=== PATIENT | female | born 1945 | race Caucasian/White ===

== ENCOUNTER 2018-01-24 15:34 | Inpatient (IN) ==
--- NOTE | 2018-01-24 20:53 | P.HP ---
History of Present Illness Service: CP Adult med Primary Care Physician: UNKNOWN Chief Complaint: transfer for cath re: severe LAD dz History of Present Illness: 72 y.o. WF liver transplant recipient presents as transfer from [facility] for definitive rotational atherectomy heart cath re: severe LAD dz. She presented to previous hospital yesterday via [facility] secondary to sudden onset chest pressure/pain around noon. Was admitted for likely NSTEMI. Cath performed via right radial artery today revealed 2 significant lesions in LAD and 1 diagonal lesion. Angioplasty was attempted and she was subsequently transferred to [facility] for repeat cath with atherectomy tomorrow AM with Dr Alvarenga. She is chest pain free and has no SOB. Dr Alvarenga is aware and has already phoned in orders in prep for her procedure tomorrow AM. PMH Adjustment disorder with depressed mood Anxiety CKD stage III GERD Hyperlipidemia History of liver transplant [place] Osteoporosis History of major depression PSH Right breast biopsy 2005 Liver biopsy 2007 Cholecystectomy D&C Liver transplant July 2010 Right breast lumpectomy Soc Hx for 40 yrs Retired first aid attendant Currently homemaker Never a smoker, never a heavy drinker of EtOH and hasn't drank any EtOH in yrs. FH Father had an acute FL at age 59 and also had history of hypertension and diabetes Father in his 80s of CHF exacerbation apparently Home meds Alprazolam 1mg bid Amlodipine 5mg/d Calcium +vit D bid Clonidine 0.1 mg bid prn sbp >160 or dbp >90 Lisinopril 5mg/d Tacrolimus 1mg bid - Diagnosis (1) Coronary artery disease (2) Anxiety (3) Liver transplant recipient (4) Hypertension Inpatient Certification: I certify that the inpatient services were ordered in accordance with Medicare regulations governing the order. This includes certification that hospital inpatient services are reasonable and necessary and in the case of services not specified as inpatient-only under 42 CFR 419.22(n), that they are appropriately provided as inpatient services in accordance to with the 2-midnight benchmark under 43 CFR 412.3(e) Estimated Total Length of Stay (Days): 2 Plans for Post Hospital Care: Home Review of Systems Constitutional: Reports fatigue Eyes: Denies blind spots, Denies blurry vision, Denies bulging eyes, Denies change in vision, Denies double vision, Denies discharge, Denies dry eyes, Denies floaters, Denies irritation, Denies itchy eyes, Denies loss of vision, Denies pain, Denies requires corrective lenses, Denies sensitivity to light, Denies other Ears, Nose, Mouth, and Throat: Denies abnormal hearing, Denies bleeding gums, Denies bad breath, Denies change in voice, Denies dental pain, Denies difficulty swallowing, Denies dizziness, Denies dry mouth, Denies ear discharge , Denies ear pain, Denies facial pain, Denies headache(s), Denies hearing loss, Denies hoarseness, Denies lip swelling, Denies nosebleed, Denies mouth lesions, Denies mouth pain, Denies nasal congestion, Denies nasal discharge, Denies nasal obstruction, Denies nasal trauma, Denies neck lump, Denies neck pain, Denies nose pain, Denies pain with swallowing, Denies poor balance, Denies post nasal drip, Denies ringing in the ears, Denies sinus pain, Denies sinus pressure , Denies sore throat, Denies throat swelling, Denies tongue swelling, Denies other Cardiovascular: Reports chest pain, Reports chest pain at rest, Reports chest pain with activity, Denies excessive sweating, Denies fainting, Denies fast heart rate, Denies foot swelling, Denies generalized swelling, Denies irregular heart rhythm, Denies leg pain with activity, Denies leg sores, Denies leg swelling, Denies lightheadedness, Denies radiating jaw, neck or arm pain, Denies rapid, pounding, or irregular heartbeat, Denies shortness of breath, Denies shortness of breath with activity, Denies shortness of breath when lying down, Denies shortness of breath causing sudden awakening, Denies slow heart rate, Denies other Respiratory: Denies change in phlegm color, Denies chest congestion, Denies cough, Denies coughing up blood, Denies excessive phlegm production, Denies pain on inspiration, Denies pain with cough, Denies shortness of breath, Denies shortness of breath with activity, Denies snoring, Denies stridor, Denies wheezing, Denies other Gastrointestinal: Reports bloating Neurologic: Denies abnormal hearing, Denies abnormal movements, Denies abnormal speech, Denies abnormal walking, Denies behavioral changes, Denies burning sensations, Denies confusion, Denies dizziness, Denies fainting, Denies frequent falls, Denies headache(s), Denies lack of coordination, Denies localized weakness, Denies loss of vision, Denies memory loss, Denies numbness, Denies other visual disturbances, Denies radiating pain, Denies restless legs, Denies convulsions, Denies seizure-like activity, Denies sensory deficit, Denies tingling, Denies tingling/numbness/burning sensations, Denies tremor(s), Denies unsteadiness, Denies weakness, Denies other Psychiatric: Reports anxiety PMFSH - Social History I have reviewed the patient's Social History: Yes Exam Narrative: GENERAL: a/o, NAD, pleasant, appears younger than stated age SKIN: Warm and dry. HEAD: Atraumatic. Normocephalic. EYES: Pupils equal and round. No scleral icterus. No injection or drainage. ENT: No nasal bleeding or discharge. Mucous membranes pink and moist. NECK: Trachea midline. No JVD. CARDIOVASCULAR: Regular rate and rhythm. no significant murmur RESPIRATORY: No accessory muscle use. Clear to auscultation. Breath sounds equal bilaterally. GASTROINTESTINAL: Abdomen soft, non-tender, mildly distended. MUSCULOSKELETAL: Extremities without clubbing, cyanosis, or edema. No obvious deformities. NEUROLOGICAL: Awake and alert. No obvious cranial nerve deficits. Motor grossly within normal limits. Five out of 5 muscle strength in the arms and legs. Normal speech. PSYCHIATRIC: Appropriate mood and affect; insight and judgment normal. Caprini VTE Risk Assessment Caprini VTE Risk Assessment: Moderate/High Risk (score >= 2) Caprini Risk Assessment Model: Point Value = 1 Point Value = 2 Point Value = 3 Point Value = 5 Age 41-60 Minor surgery BMI > 25 kg/m2 Swollen legs Varicose veins or History of unexplained or recurrent spontaneous Oral contraceptives or hormone replacement Sepsis (< 1 month) Serious lung disease, including pneumonia (< 1 month) Abnormal pulmonary function Acute myocardial infarction Congestive heart failure (< 1 month) History of inflammatory bowel disease Medical patient at bed rest Age 61-74 Arthroscopic surgery Major open surgery (> 45 min) Laparoscopic surgery (> 45 min) Malignancy Confined to bed (> 72 hours) Immobilizing plaster cast Central venous access Age >= 75 History of VTE Family history of VTE Factor V Leiden Prothrombin [id number] Lupus anticoagulant Anticardiolipin antibodies Elevated serum homocysteine Heparin-induced thrombocytopenia Other congenital or acquired thrombophilia Stroke (< 1 month) Elective arthroplasty Hip, pelvis, or leg fracture Acute spinal cord injury (< 1 month) Prophylaxis Regimen: Total Risk Factor Score Risk Level Prophylaxis Regimen 0-1 Low Early ambulation 2 Moderate Order ONE of the following: *Sequential Compression Device (SCD) *Heparin 5000 units SQ BID 3-4 Higher Order ONE of the following medications: *Heparin 5000 units SQ TID *Enoxaparin/Lovenox 40 mg SQ daily (WT < 150 kg, CrCl > 30 mL/min) *Enoxaparin/Lovenox 30 mg SQ daily (WT < 150 kg, CrCl > 10-29 mL/min) *Enoxaparin/Lovenox 30 mg SQ BID (WT < 150 kg, CrCl > 30 mL/min) AND/OR *Sequential Compression Device (SCD) 5 or more Highest Order ONE of the following medications: *Heparin 5000 units SQ TID (Preferred with Epidurals) *Enoxaparin/Lovenox 40 mg SQ daily (WT < 150 kg, CrCl > 30 mL/min) *Enoxaparin/Lovenox 30 mg SQ daily (WT < 150 kg, CrCl > 10-29 mL/min) *Enoxaparin/Lovenox 30 mg SQ BID (WT < 150 kg, CrCl > 30 mL/min) AND *Sequential Compression Device (SCD) Assessment and Plan - Assessment (1) Coronary artery disease Code(s): I25.10 - Atherosclerotic heart disease of [place] coronary artery without angina pectoris Status: Acute Plan: significant LAD lesions. planned cath in AM per Dr Alvarenga. pretreatment re: IV contrast allergy ongoing. Orders per cardiology (2) Anxiety Code(s): F41.9 - Anxiety disorder, unspecified Status: Chronic Plan: continue home meds (3) Liver transplant recipient Code(s): Z94.4 - Liver transplant status Status: Acute Plan: continue home meds (4) Hypertension Code(s): I10 - Essential (primary) hypertension Status: Acute Plan: home meds as tolerated - Plan heart cath in AM, mgmt per cardiology Code Status: full Discussed Condition With: Pt, her nurse and Dr Heard (4) Hypertension Qualifiers: Hypertension type: essential hypertension Qualified Code(s): I10 - Essential (primary) hypertension
[2018-01-24] MEDS ORDERED: ALPRAZolam 0.5 MG Tablet PO PRN (21:44)
[2018-01-24] MEDS ORDERED: Famotidine PF Inj 20 MG/2 ML Vial IV.PUSH ONE (21:45)
[2018-01-24] MEDS: Hydrocortisone Sod Succinate 100 MG Vial IV.PUSH SCH (22:32)
[2018-01-24] MEDS: amLODIPine 10 MG Tablet PO SCH (22:35)
[2018-01-24] MEDS: Metoprolol Tartrate 25 MG Tablet PO SCH (22:35)
[2018-01-25] MEDS ORDERED: Hydrocortisone Sod Succinate 100 MG Vial IV.PUSH SCH (05:00)
[2018-01-25] MEDS ORDERED: Famotidine PF Inj 20 MG/2 ML Vial IV.PUSH SCH (05:00)
[2018-01-25 06:22] LABS: Baso % (Auto) 0.1 % (0.0-2.0); Hematocrit 34.6 % (35.0-46.0); Hemoglobin 11.7 gm/dL (11.6-15.3); Lymph # (Auto) 0.4 th/mm3 (1.0-4.8); Lymph % (Auto) 4.5 % (9.0-44.0); Mean Corpuscular HGB Conc 33.9 % (32.0-36.0); Mean Corpuscular Volume 91.5 fL (80.0-100.0); Mean Platelet Volume 9.4 fL (7.0-11.0); Mono # (Auto) 0.4 th/mm3 (0.0-0.9); Mono % (Auto) 5.5 % (0.0-8.0); Neut # (Auto) 7.3 th/mm3 (1.8-7.7); Neut % (Auto) 89.9 % (16.0-70.0); Platelet Count 236 th/mm3 (150-450); Red Blood Count 3.78 mil/mm3 (4.00-5.30); Red Cell Distribution Width 13.7 % (11.6-17.2); White Blood Count 8.1 th/mm3 (4.0-11.0)
[2018-01-25 06:31] LABS: INR 1.1 Ratio; Prothrombin Time 10.7 sec (9.8-11.6)
[2018-01-25 06:45] LABS: Alanine Aminotransferase 37 U/L (10-53); Albumin 3.8 g/dL (3.4-5.0); Anion Gap 9 meq/L (5-15); Aspartate Aminotransferase 44 U/L (15-37); Blood Urea Nitrogen 17 mg/dL (7-18); Calcium 9.2 mg/dL (8.5-10.1); Carbon Dioxide 28.1 meq/L (21.0-32.0); Chloride 100 meq/L (98-107); Glomerular Filtration Rate 43 mL/min (>89); Glucose,Random 173 mg/dL (74-106); Potassium 3.3 meq/L (3.5-5.1); Sodium 137 meq/L (136-145)
[2018-01-25 06:48] LABS: Alkaline Phosphatase 83 U/L (45-117); Total Protein 6.7 g/dL (6.4-8.2)
--- NOTE | 2018-01-25 07:59 | P.CONCA ---
History of Present Illness Primary Care Provider: UNKNOWN Chief Complaint: transfer for cath re: severe LAD dz History of Present Illness: 72-year-old female with a past medical history of liver transplant who presented to [facility] with severe chest pain on Tuesday. No prior chest pain before that, but has noticed progressive fatigue. She was found to have non-STEMI. She underwent left heart catheterization 01/24/[address] Reyes, which showed severe mid (95%) and proximal (80%) calcific LAD stenoses that were unable to be successfully angioplastied with arthrectomy balloon. Dr. Alvarenga was contacted for rotational arthrectomy for complete revascularization of LAD lesions, and patient was transferred to [facility]. Patient denies any chest pain or shortness of breath at this time. She denies any prior history of heart disease. Review of Systems All other systems reviewed negative except as [facility] - History History Provided By: Patient, Medical Record - Tobacco History Second Hand Smoke Exposure: No Smoking Status: Never smoker - Alcohol History How Often Do You Have a Drink Containing Alcohol: Never - Substance Use History Substance History: No History of Abuse - Travel History Recent Travel in the [place] Within the Last 8 Weeks: No Recent Travel Out of the Country Within the Last 8 Weeks: No Medications and Allergies Allergies Allergy/AdvReac Type Severity Reaction Status Date / Time iodine Allergy Anaphylaxis Verified 01/24/18 21:45 Active Medications: Active Medications Alprazolam (Xanax) 0.5 mg PO TID PRN PRN Reason: ANXIETY Last Admin: 01/24/18 22:32 Dose: 0.5 mg Amlodipine Besylate (Norvasc) 10 mg PO BID [facility] Last Admin: 01/24/18 22:35 Dose: Not Given Aspirin (Aspirin Chew) 81 mg PO DAILY [facility] Atorvastatin Calcium (Lipitor) 40 mg PO HS [facility] Last Admin: 01/24/18 22:34 Dose: Not Given Famotidine (Pepcid Pf Inj) 20 mg IV.PUSH [employer] [facility] Stop: 01/25/18 17:00 Hydrocortisone Sodium Succinate (Solucortef Inj) 100 mg IV.PUSH NOW [facility] Last Admin: 01/24/18 22:32 Dose: 100 mg Hydrocortisone Sodium Succinate (Solucortef Inj) 100 mg IV.PUSH [employer] [facility] Stop: 01/25/18 18:00 Metoprolol Tartrate (Lopressor) 25 mg PO BID [facility] Last Admin: 01/24/18 22:35 Dose: Not Given Tacrolimus (Prograf) 1 mg PO Q12HR [facility] Last Admin: 01/24/18 22:29 Dose: 1 mg Ticagrelor (Brilinta) 90 mg PO BID [facility] Last Admin: 01/24/18 22:27 Dose: 90 mg Vitamin D (Vitamin D3) 400 unit PO DAILY [facility] Exam Vital signs: Vital Signs 01/24/18 23:00 01/25/18 00:00 01/25/18 04:00 Temperature 98.8 F 98.4 F 98.6 F Pulse Rate 81 91 H 90 Respiratory Rate 16 18 20 Blood Pressure 94/63 L 105/68 118/72 Pulse Oximetry 96 95 98 Intake & Output 01/24/18 01/25/18 01/25/18 18:59 06:59 18:59 Intake Total 240 / 240 Balance 240 / 240 Weight 114 lb 3.191 oz Intake: Oral 240 / 240 Other: Date of Last Bowel Movement 01/22/18 Narrative: GENERAL: Well-developed well-nourished. In no acute distress. NECK: No carotid bruits. No JVD. CARDIOVASCULAR: Regular rate and rhythm. No murmur appreciated. RESPIRATORY: No accessory muscle use. Clear to auscultation. Breath sounds equal bilaterally. MUSCULOSKELETAL: No clubbing or cyanosis. No edema. NEUROLOGICAL: Awake and alert. Normal speech. Results 01/25/18 05:06 01/25/18 05:06 Cardiac Enzymes 01/25/18 Range/Units 05:06 AST 44 H (15-37) U/L Coagulation 01/25/18 Range/Units 05:06 PT 10.7 (9.8-11.6) sec CBC 01/25/18 Range/Units 05:06 WBC 8.1 (4.0-11.0) th/mm3 RBC 3.78 L (4.00-5.30) mil/mm3 Hgb 11.7 (11.6-15.3) gm/dL Hct 34.6 L (35.0-46.0) % Plt Count 236 (150-450) th/mm3 Neut # (Auto) 7.3 (1.8-7.7) th/mm3 Lymph # (Auto) 0.4 L (1.0-4.8) th/mm3 [place] # (Auto) 0.4 (0.0-0.9) th/mm3 Eos # (Auto) 0.0 (0.0-0.4) th/mm3 Baso # (Auto) 0.0 (0.0-0.2) th/mm3 Comprehensive Metabolic Panel 01/25/18 Range/Units 05:06 Sodium 137 (136-145) meq/L Potassium 3.3 L (3.5-5.1) meq/L Chloride 100 (98-107) meq/L Carbon Dioxide 28.1 (21.0-32.0) meq/L BUN 17 (7-18) mg/dL Creatinine 1.22 H (0.50-1.00) mg/dL Calcium 9.2 (8.5-10.1) mg/dL AST 44 H (15-37) U/L ALT 37 (10-53) U/L Alkaline Phosphatase 83 (45-117) U/L Total Protein 6.7 (6.4-8.2) g/dL Albumin 3.8 (3.4-5.0) g/dL Intake and Output 01/24/18 01/25/18 01/25/18 22:59 06:59 14:59 Intake Total 240 / 240 Balance 240 / 240 Intake: Oral 240 / 240 Other: Date of Last Bowel Movement 01/22/18 Weight 114 lb 3.191 oz Assessment and Plan - Plan 72-year-old female with a past medical history of liver transplant who presented to [facility] with severe chest pain on Tuesday. She was found to have non-STEMI. She underwent left heart catheterization 01/24/[address] Reyes, which showed severe mid (95%) and proximal (80%) calcific LAD stenoses that were unable to be successfully angioplastied with arthrectomy balloon. Dr. Alvarenga was contacted for rotational arthrectomy for complete revascularization of LAD lesions, and patient was transferred to [facility]. CAD: NPO for [facility] today. Continue aspirin, Brilinta, statin. Discussed Condition With: Patient, Dr. Alvarenga - Attending Attestation agree with above PCI FREDDIE proximal and mid LAD atherectomy asa brilinta bb statin DC home tomorrow 2d echo
--- NOTE | 2018-01-25 08:35 | P.PNIM ---
Subjective Interval history: pt denies cp or sob Physical Exam Vital signs: Last Vital Signs Temp 98.3 F 01/25/18 08:22 Pulse 99 H 01/25/18 08:22 Resp 16 01/25/18 08:22 BP 133/80 01/25/18 08:22 Pulse Ox 100 01/25/18 08:22 Narrative: heart reg lung cta abd s/nt ext no edema Results Labs CBC & Chem 7: 01/25/18 05:06 01/25/18 05:06 Assessment and Plan Assessment (1) Coronary artery disease: Code(s): I25.10 - Atherosclerotic heart disease of [place] coronary artery without angina pectoris Status: Acute (2) Anxiety: Code(s): F41.9 - Anxiety disorder, unspecified Status: Chronic (3) Liver transplant recipient: Code(s): Z94.4 - Liver transplant status Status: Chronic (4) Hypertension: Code(s): I10 - Essential (primary) hypertension Status: Acute Plan discussed with Dr Alvarenga. going for intervention today on LAD cont current meds and decide on disposition after LHC asa/ticagrelor/statin/bb cont tacrolimas replace kcl Progress Note: Quality VTE Deep Vein Thrombosis/Pulmonary Embolism Present on Admission: No _ (1) Coronary artery disease Qualifiers: Associated angina: Coronary Disease-Associated Artery/Lesion type: [place] vs. transplanted heart: (2) Hypertension Qualifiers: Hypertension type: essential hypertension Qualified Code(s): I10 - Essential (primary) hypertension
[2018-01-25] MEDS: Hydrocortisone Sod Succinate 100 MG Vial IV.PUSH SCH (08:56)
[2018-01-25] MEDS ORDERED: Heparin/NS PF Inj 1,500 ML ONE (09:47)
[2018-01-25] MEDS ORDERED: fentaNYL Citrate Inj 100 MCG/2 ML Ampul ONE ×3 (09:54→14:43)
[2018-01-25] MEDS ORDERED: Heparin 10,000 UNITS/10 ML Vial (for IV use) ONE (09:54)
--- NOTE | 2018-01-25 11:22 | CATHPROC ---
[facility] HIS Report Study Information Study Number Admission Scheduled Start Study Start [id number] Jan 24 2018 7:30PM 01/25/2018 Jan 25 2018 9:32AM [facility] Service Cardiac Pacer/ICD Admit Source Facility Department Other [facility] - Synthetic Department Supervisor Physician and Clinical Staff Initial Edis Maria Anesthesia Assistant Deanna Patel,[place] Anesthesia Assistant Mony Rehman RN Recorder Floresita Reed ,RT(R) Amy JenkinsRT(R) (BS) Procedures Performed Procedure Location (Site) Vessel Name Drug Eluting Inflatio LAD Mid Left Coronary IVUS Fem Art (right) Femoral Art L Heart Cath PTCA LAD Mid Left Coronary Wire insertion Fem Art (right) Femoral Art Equipment Time Shuttle Filler Description Size Mfg Part Number Used/Scraped COPILOT VALVE, BLEEDBACK [id number] 09:41 [employer] Used CONTROL *[id number] TRANSDUCER, TRUWAVE [id number] 09:34 BRADY BELLO * Used W/STOCKCOCK *[id number] CARDIOVASCULAR CATHETER, CORONARY CLASSIC DBEC-125 10:33 Used SYSTEMS INC. 1.25MM *[id number] CARDIOVASCULAR WIRE, VIPER ADVANCE [id number] 10:30 Used [employer]S INC. CORONARY FLP *[id number] *[id number] 09:34 [employer] BLANKET,WARM AIR CCL * Used *[id number] 09:34 [employer] PACK, CCL CUSTOM * Used *[id number] 09:34 [employer] SUPPORT, ARTERIAL ADULT 57740 *[id number] Used BALLOON, 1.25 X 6MM SPRINTER [id number] 10:28 [employer] 6MM Used LEGEND OTW *[id number] 10:43 [employer] BALLOON, 2.5 X 20MM EUPHORA 20MM Used *[id number] BALLOON, 2.5 X 20MM NC [id number] 11:05 [employer] 20MM Used EUPHORA *[id number] 10:54 [employer] STENT, 2.25 18MM ARVIND 2.25 18MM Used *[id number] 10:59 [employer]IC STENT, 2.5 34MM ARVIND 2.5 34MM Used *[id number] [id number] 09:40 [employer] 30 ANGELA INDEFLATOR Used *[id number] SHEATH, FR6 RADIAL PRELUDE 09:34 [email or web address] MEDICAL FR 6 [id number] Used EASE 11CM [id number]- 09:42 [email or web address] MEDICAL SHEATH, FR6.5 PRELUDE 11CM FR 6.5 038ACT Used *[id number] 09:34 [email or web address] MEDICAL WIRE, EXCHANGE 260CM 3MMJ 260CM Used *6916835 [id number] 09:34 NAMIC MANIFOLD, 4 PORT * Used *[id number] 09:34 [employer] OMNIPAQUE, 350 MG, 150ML 150ML [id number] Used WIRE, RUNTHROUGH NS FLOPPY [id number] 10:13 [employer] 300CM Used .014 300CM *[id number] CATHETER, [employer]ARCH [id number] 10:13 [employer] Used IMAGING *[id number] Equipment Model, Serial, Lot Number and Expiration Data Description Model Number Serial Number Lot Number Expiration Date CATHETER, [employer] POARCH [id number] 07-26-2019 IMAGING STENT, 2.25 18MM ARVIND [id number] 02-25-2019 STENT, 2.5 34MM ARVIND [id number] 05-31-2019 WIRE, VIPER ADVANCE CORONARY [id number] 08-26-2019 History: Current Medications Medication Dosage/Unit Route Frequency Last Date/Time Taken NORVASC ASA LIPITOR LOPRESSOR History: Allergies Allergy Reaction iodine Anaphylaxis History: Risk Factors Family History of Hypertension Dyslipidemia Previous IL Previous Heart Failure Premature CAD Yes Yes No No No Prior Valve Prior PCI Prior CABG Surgery No No No Cerebrovascular Peripheral Artery Chronic Lung On Dialysis Diabetes Disease Disease Disease No No No No No Labs Hgb (g/dl) Hct (%) WBC (l/cumm) Platelets (thousands) 11.60-17.00 35.00-51.00 4.00-11.00 150.00-450.00 11.7 34.6 8.1 236 Glucose (mg/dl) BUN (mg/dl) Creatinine (mg/dl) BUN:Creatinine (1:x) 74.00-106.00 7.00-18.00 0.50-1.30 10.00-20.00 173 17 1.2 14.2 Na (meq/l) K (meq/l) 136.00-145.00 3.50-5.10 137 3.3 INR (PTT:PT) 0.90-1.10 1.1 CPK-MB (ng/ML) 0.50-3.60 Not Drawn Medication Medication Total Dose (Bolus/Oral) Medication Total Dosage/Unit 1% XYLOCAINE 15 mL FENTANYL 125 mcg HEPARIN 5000 units VERSED 4 mg Medications (Bolus/Oral) Medication Time Given Dosage/Unit Administered By Reason 01/25/2018 10:06:13 VERSED 1 mg Adamy, Deanna AM 1 mg VERSED given in lab by Deanna Patel RN via Peripheral IV. Ordered by Edis Alavrenga. 01/25/2018 10:07:14 FENTANYL 50 mcg Graemey, Deanna AM 50 mcg FENTANYL given in lab by Deanna Patel RN via Peripheral IV. Ordered by Edis Alvarenga. 01/25/2018 10:09:40 1% XYLOCAINE 15 mL Edis Alvarenga AM 15 mL 1% XYLOCAINE given in lab by Edis Alvarenga via Subcutaneous. Ordered by Edis Alvarenga. 01/25/2018 10:12:37 HEPARIN 5000 units Elida Patelnifer AM 5000 units HEPARIN given in lab by Deanna Patel RN via Peripheral IV. Ordered by Edis Alvarenga. 01/25/2018 10:14:40 VERSED 1 mg Adamy, Deanna AM 1 mg VERSED given in lab by Deanna Patel RN via Peripheral IV. Ordered by Edis Alvarenga. 01/25/2018 10:15:41 FENTANYL 25 mcg Adamy, Deanna AM 25 mcg FENTANYL given in lab by Deanna Patel RN via Peripheral IV. Ordered by Edis Alvarenga. 01/25/2018 10:39:27 VERSED 1 mg Adamy, Deanna AM 1 mg VERSED given in lab by Deanna Patel RN via Peripheral IV. Ordered by Edis Alvarenga. 01/25/2018 10:40:34 FENTANYL 25 mcg Adamy, Deanna AM 25 mcg FENTANYL given in lab by Deanna Patel RN via Peripheral IV. Ordered by Edis Alvarenga. 01/25/2018 10:50:31 VERSED 1 mg Mony Rehman AM 1 mg VERSED given in lab by Mony Rehman RN via Peripheral IV. Ordered by Edis Alvarenga. 01/25/2018 10:52:44 FENTANYL 25 mcg Mony Rehman AM 25 mcg FENTANYL given in lab by Mony Rehman, RN via Peripheral IV. Ordered by Edis Alvarenga. Medication (Drip) Medication Time Given Dosage/Unit Concentration/Unit Diluent (ml) Solution IV Solutions 01/25/2018 9:41:09 AM 50 mL (IV) NaCl .9 Patient arrived on IV Solutions via Peripheral IV. Pump/Drip Flow using NaCl .9. Initial Case Assessment Cardiovascular HR NIBP 89 125/78 Edema Present Skin color Skin None Normal Warm Dry Circulatory - Right Pulses Dorsalis Pedis Femoral 3 2 Scale (0,1,2,3,4,d) Circulatory - Left Pulses Dorsalis Pedis Femoral 3 2 Scale (0,1,2,3,4,d) Neurological State Oriented to time-place- Alert Moves all extremities person Respiration - General Respiration Rate SpO2 (%) (B/min) 16 97 Final Case Assessment Cardiovascular HR NIBP 89 125/78 Edema Present Skin color Skin None Normal Warm Dry Circulatory - Right Pulses Dorsalis Pedis Femoral 3 2 Scale (0,1,2,3,4,d) Circulatory - Left Pulses Dorsalis Pedis Femoral 3 2 Scale (0,1,2,3,4,d) Neurological State Oriented to time-place- Alert Moves all extremities person Respiration - General Respiration Rate SpO2 (%) (B/min) 16 97 Chronological Log Time Study Chronological Log 9:39:32 Patient arrived via Bed. 9:39:33 Patient Name, D.O.B, / Armband Verified By R.N. 9:40:56 Consent signed by the physician and the patient and verified by the Synthetic Department Supervisor staff. 9:40:57 Pre-op and post- op instructions given; patient acknowledges understanding of instructions. 9:40:57 Verbal Stimulation=2 Physical Stimulation=2 Airway=2 Respiration=2 TOTAL=8. (0=absent, 1=li mited, 2=present) 9:41:00 Patient has been NPO for More than 6Hrs. 9:41:00 Skin Breakdown- none per patient 9:41:01 Patient Warmer Placed on the Table. 9:41:03 Disposable Defibrillator Pads Placed On Patient. 9:41:09 A # 20 IV was noted in the Forearm (left). Grade = 0 9:41:09 Patient arrived on IV Solutions via Peripheral IV. Pump/Drip Flow using NaCl .9. 9:41:10 History and physical on the chart or being dictated. Assessment: Initial Case, HR=89 BPM, MSWT=916/78 mmhg, Edema=None, Color=Normal, Skin = Warm, D ry Right Pulses: Kings Ped=3, Femoral=2 9:41:11 Left Pulses: Kings Ped=3, Femoral=2 Neurological: State=Alert, Ox3, JIMENEZ Respiration: Resp=16 B/min, SpO2=97 % Vitals capture started with the following parameters, Patient=Adult, Interval=5 min, Initial Pr wvgyfb=978 mmHg, 9:45:11 Deflation Rate=5 mmHg, Cuff placed on Left Arm 9:45:50 ZZST=192/78 mmhg 9:49:08 Reference ECG taken 9:50:49 HR=84 bpm, QQKL=009/68 mmhg, SpO2=97.0 %, Resp=15 B/min 9:53:35 MD arrived. 9:55:46 HR=92 bpm, QVHT=705/72 mmhg, SpO2=97.0 %, Resp=8 B/min 9:58:45 Pressure channel 1 zeroed. 10:00:49 HR=83 bpm, RDXY=247/64 mmhg, SpO2=96.0 %, Resp=15 B/min Time Out. Correct patient, correct procedure, correct physician, labs, allergies, and equipment verified with brush clearing laborer 10:04:51 team present. Fire risk assesment completed (see hard stop sheet for coding). Time Out Conc urred by MD and individual staff in procedure. 10:05:44 HR=89 bpm, QSWW=580/75 mmhg, SpO2=98.0 %, Resp=16 B/min 10:06:13 1 mg VERSED given in lab by Deanna Patel, [place] via Peripheral IV. Ordered by Gomez Alvarenga 10:07:14 50 mcg FENTANYL given in lab by Deanna Patel, [place] via Peripheral IV. Ordered by St radhika Alvarenga. 10:09:23 Case Start 10:09:40 15 mL 1% XYLOCAINE given in lab by Edis Alvarenga via Subcutaneous. Ordered by Mirlande Alvarenga 10:10:47 HR=82 bpm, LNPF=637/67 mmhg, SpO2=93.0 %, Resp=12 B/min 10:10:57 Access site was Right Femoral Artery. 10:11:03 A SHEATH, FR6.5 PRELUDE 11CM FR 6.5 was advanced into the Fem Art (right) using the Percuta neous technique. A XBLAD 3.5 GUIDE CATHETER FR 6 was advanced over a wire. OMNIPAQUE, 350 MG, 150ML 150ML was us ed for 10:11:28 injections. 10:12:37 5000 units HEPARIN given in lab by Deanna Patel, [place] via Peripheral IV. Ordered by Edis Alvarenga. Recorded Pressure: Ao, HR=80, Condition=Condition 1 10:13:07 (Aorta) Ao 113/57/81 10:14:40 1 mg VERSED given in lab by Deanna Patel, [place] via Peripheral IV. Ordered by Gomez Alvarenga 10:14:57 A WIRE, RUNTHROUGH NS FLOPPY .014 300CM 300CM was inserted via Fem Art (right). 10:15:41 25 mcg FENTANYL given in lab by Deanna Patel, [place] via Peripheral IV. Ordered by St radhika Alvarenga. 10:15:44 HR=83 bpm, CVQX=491/67 mmhg, SpO2=94.0 %, Resp=17 B/min 10:16:47 Interventional wire has crossed the lesion 10:19:51 An CATHETER, WH[employer]TH EYE POARCH IMAGING was advanced through the lesion. Images saved onto IVUS hard drive 10:20:49 HR=79 bpm, OXXF=676/58 mmhg, SpO2=93.0 %, Resp=9 B/min 10:21:38 IVUS in progress using CATHETER, [employer] POARCH IMAGING Mean Luminal Area measured ~PRETTY N LUMINAL~ 10:22:21 IVUS catheter removed 10:23:08 Activated Clotting Time Drawn 10:25:46 HR=81 bpm, HJII=593/60 mmhg, SpO2=92.0 %, Resp=14 B/min A BALLOON, 1.25 X 6MM SPRINTER LEGEND OTW 6MM was inserted over WIRE, RUNTHROUGH NS FLOPPY .014 10:27:48 300CM 300CM via the Fem Art (right). 10:30:47 HR=78 bpm, MXQA=450/57 mmhg, SpO2=93.0 %, Resp=11 B/min 10:31:43 The previous wire was exchanged for a WIRE, VIPER ADVANCE CORONARY. 10:31:53 Balloon Removed. 10:33:27 ACT (Normal Range 90-180) = 516 10:33:31 Activated Clotting Time Drawn 10:35:46 HR=79 bpm, IZYR=656/65 mmhg, SpO2=95.0 %, Resp=12 B/min 10:38:58 An CATHETER, CORONARY CLASSIC 1.25MM catheter was inserted into the Fem Art (right). 10:39:14 ACT (Normal Range 90-180) = 301 10:39:27 1 mg VERSED given in lab by Deanna Patel, [place] via Peripheral IV. Ordered by Gomez Alvarenga 10:40:34 25 mcg FENTANYL given in lab by Deanna Patel, [place] via Peripheral IV. Ordered by St radhika Alvarenga. 10:40:47 HR=80 bpm, EESG=713/66 mmhg, SpO2=96.0 %, Resp=15 B/min 10:41:05 CSI in progress 10:45:46 HR=81 bpm, JNTY=195/75 mmhg, SpO2=94.0 %, Resp=18 B/min 10:45:51 CSI removed A BALLOON, 2.5 X 20MM EUPHORA 20MM was inserted over WIRE, RUNTHROUGH NS FLOPPY .014 300CM 300C M via 10:47:31 the Fem Art (right). A BALLOON, 2.5 X 20MM EUPHORA 20MM over a WIRE, RUNTHROUGH NS FLOPPY .014 300CM 300CM in the LA D Mid 10:49:26 was inflated using a 30 ANGELA INDEFLATOR at 6 angela for 30 sec. A BALLOON, 2.5 X 20MM EUPHORA 20MM over a WIRE, RUNTHROUGH NS FLOPPY .014 300CM 300CM in the LA D Mid 10:50:07 was inflated using a 30 ANGELA INDEFLATOR at 12 angela for 30 sec. 10:50:31 1 mg VERSED given in lab by Mony Rehman, [place] via Peripheral IV. Ordered by Gomez Alvarenga 10:50:47 HR=86 bpm, DOWM=786/77 mmhg, SpO2=94.0 %, Resp=19 B/min, Pain=0, Rj=10, Parikh=2 A BALLOON, 2.5 X 20MM EUPHORA 20MM over a WIRE, RUNTHROUGH NS FLOPPY .014 300CM 300CM in the LA D Mid 10:50:51 was inflated using a 30 ANGELA INDEFLATOR at 14 angela for 25 sec. 10:52:02 Balloon Removed. 10:52:44 25 mcg FENTANYL given in lab by Mony Rehman RN via Peripheral IV. Ordered by St radhika Alvarenga. A STENT, 2.25 18MM ARVIND 2.25 18MM was advanced through a XBLAD 3.5 GUIDE CATHETER FR 6 over a W ADRIANA, 10:54:00 VIPER ADVANCE CORONARY. A STENT, 2.25 18MM ARVIND 2.25 18MM was deployed using a 30 ANGELA INDEFLATOR at 12 atmospheres for 10 seconds 10:54:23 in the LAD Mid. 10:55:50 HR=72 bpm, FCKY=892/67 mmhg, SpO2=94.0 %, Resp=11 B/min 10:57:23 Delivery device removed A STENT, 2.5 34MM ARVIND 2.5 34MM was advanced through a XBLAD 3.5 GUIDE CATHETER FR 6 over a WIR E, 10:59:28 RUNTHROUGH NS FLOPPY .014 300CM 300CM. 11:00:49 HR=85 bpm, HKMX=066/77 mmhg, SpO2=93.0 %, Resp=12 B/min A STENT, 2.5 34MM ARVIND 2.5 34MM was deployed using a 30 ANGELA INDEFLATOR at 14 atmospheres for 15 seconds in 11:00:55 the LAD Mid. 11:01:43 Delivery device removed A BALLOON, 2.5 X 20MM NC EUPHORA 20MM was inserted over WIRE, RUNTHROUGH NS FLOPPY .014 300CM 3 00CM 11:04:50 via the Fem Art (right). A BALLOON, 2.5 X 20MM NC EUPHORA 20MM over a WIRE, RUNTHROUGH NS FLOPPY .014 300CM 300CM in the LAD 11:05:19 Mid was inflated using a 30 ANGELA INDEFLATOR at 15 angela for 20 sec. A BALLOON, 2.5 X 20MM NC EUPHORA 20MM over a WIRE, RUNTHROUGH NS FLOPPY .014 300CM 300CM in the LAD 11:05:32 Mid was inflated using a 30 ANGELA INDEFLATOR at 8 angela for 15 sec. 11:05:50 HR=82 bpm, UFAC=113/67 mmhg, SpO2=92.0 %, Resp=12 B/min 11:06:19 Balloon Removed. 11:08:15 Wire removed 11:08:39 Catheter was removed 11:09:24 Activated Clotting Time Drawn 11:09:25 ACT (Normal Range 90-180) = 276 11:09:56 Case End (Physician broke scrub) Assessment: Final Case, HR=89 BPM, FBMV=778/78 mmhg, Edema=None, Color=Normal, Skin = Warm, Dry Right Pulses: Kings Ped=3, Femoral=2 11:10:28 Left Pulses: Kings Ped=3, Femoral=2 Neurological: State=Alert, Ox3, JIMENEZ Respiration: Resp=16 B/min, SpO2=97 % 11:10:47 HR=86 bpm, CHQV=341/72 mmhg, SpO2=91.0 %, Resp=15 B/min 11:11:42 Catheter(s) removed without difficulty 11:12:34 In the Fem Art (right) the SHEATH, FR6.5 PRELUDE 11CM FR 6.[address] by Edis Alvarenga. 11:12:40 Sterile dressing applied to site 11:12:41 No case complications noted. 11:12:42 Cine recording checked. 11:12:43 Bedside Report will be given. 11:12:48 Implantable Device card placed in patient's chart. 11:12:50 A Left Heart Cath was performed. 11:15:51 WEKO=235/75 mmhg, SpO2=94.0 % 11:20:25 Patient moved to stretcher 11:20:41 Vitals capture stopped. End Study - Contrast Media Used In Study Contrast Total Opened (mL) Total Used (mL) Total Wasted (mL) Omnipaque 135 135 0 End Study - Maximum Contrast Load Max Contrast Load (mL) 215.9 End Study - Radiation Exposure Fluoro Time (minutes) 15.4 End Study - Patient Disposition Complications Transferred To Interventional Outcome No Critical Care Bed successful
--- NOTE | 2018-01-25 12:02 | P.PCN ---
Date of procedure: 01/25/18 Pre-op diagnosis: Unstable angina Procedure: heater planer operator: Edis Alvarenga MD Procedure performed: 1. Fluoroscopy with interpretation 2. Coronary angiography 3. Orbital rotational atherectomy of the proximal and mid left anterior descending coronary artery 4. Percutaneous transluminal coronary angioplasty and endovascular stenting with drug-eluting stents to the proximal and mid left anterior descending coronary artery 5. Intravascular ultrasound Methods: Risks, benefits, and alternatives were discussed with the patient. Patient understood consented to the procedure. Patient was brought to the cardiac catheterization lab placed in catheterization table. Right groin was prepped and draped in sterile fashion. Right groin was anesthetized with 1% lidocaine. Right common femoral artery was cannulated and a 6 [place] 11 cm sheath was placed without difficulty. Coronary angiography: 1. Left main coronary has ostial tapering estimate severity stenosis approximately 40%. 2. Proximal left anterior descending coronary has diffuse disease to the mid segment severity stenosis 90% 3. Left circumflex gives rise to an obtuse marginal branch which has minor luminal irregularities 4. Right coronary also gives rise to a point also gives rise to posterior descending coronary artery. Right coronary is mild irregularities Intravascular ultrasound: 6 [place] XB LAD 3.5 guide catheter was engaged in left main coronary artery. 0.014 inch 300 cm Terumo run through wire was navigated down to the distal left anterior descending coronary artery without difficulty. An intravascular ultrasound probe was then advanced into the left main coronary artery. The ostium did have eccentric plaque present. Cross-sectional area was calculated at 10.7 mm. Estimated severity stenosis between 40 and 50%. No significant dampening upon engagement Percutaneous coronary intervention: A 1.25 x 6 mm [id number]-orfu balloon was advanced onto the distal left anterior descending coronary artery and the Terumo run through wire removed. A 335 cm 0.014 inch Viper wire was navigated down to the distal left anterior descending coronary artery and the balloon removed. A 1.25 mm CSI atherectomy catheter was then prepped and advanced onto the proximal left anterior descending coronary artery. 3 sequential passes of orbital rotation arthrectomy was performed. A 2.25 x 20 mm Rx you for balloon was advanced onto the proximal extending in the mid left anterior descending coronary deployed in 2 sequential inflations to 10 gianni. Repeat angiography still showed severe residual stenosis. A 2.5 x 18 mm Rx resolute Griffin stent was advanced down to the mid left anterior descending coronary artery deployed. A 2.5 x 34 mm Rx resolute Griffin stent was advanced on the proximal left anterior descending coronary with minimal stent overlap and deployed. The proximal segment was then postdilated with a 2.5 x 20 mm Rx you for NC balloon to 20 gianni. Repeat angiography showed no residual stenosis SAQIB-3 flow. Wire was removed. Guide catheter was removed. Heparin was administered throughout the entire procedure to maintain appropriate coagulation. Next Conclusions: 1. Successful orbital rotational atherectomy, balloon angioplasty, and endovascular stenting with drug-eluting stents to the proximal extending into the mid left anterior descending coronary artery Plan: Patient be continued on aggressive medical therapy. Patient be monitored closely for any postprocedural complications. Will follow up with a 2D echocardiogram. Anticipate discharge tomorrow.
[2018-01-25] MEDS: amLODIPine 10 MG Tablet PO SCH ×2 (12:38→20:31)
[2018-01-25] MEDS: Metoprolol Tartrate 25 MG Tablet PO SCH ×2 (12:38→20:32)
[2018-01-25] MEDS ORDERED: Sodium Chlor 0.9% Inj 250 ML IV.SIG ONE (13:31)
[2018-01-25] MEDS ORDERED: Atropine Inj 1 MG/ML Vial IV.PUSH PRN (13:31)
--- NOTE | 2018-01-25 13:31 | ECG ---
Date Performed: 01/24/2018 Time Performed: 22:38:50 PTAGE: 72 years EKG: Sinus rhythm Right bundle branch block Abnormal ECG NO PREVIOUS TRACING DOCTOR: Edis Alvarenga Interpretating Date/Time 01/25/2018 13:29:27
[2018-01-25] MEDS ORDERED: Morphine Inj 4 MG/ML Vial ONE (14:24)
[2018-01-25] MEDS ORDERED: Iohexol 350 MG/ML 100 ML Vial (for Cath Lab) IVCONTRAST ONE (14:29)
[2018-01-25] MEDS ORDERED: Iohexol 350 MG/ML 50 ML Vial (for Cath Lab) IVCONTRAST ONE (14:29)
[2018-01-25] MEDS ORDERED: Morphine Sulfate Inj 2 MG/ML Vial IV.PUSH ONE (15:15)
[2018-01-25] MEDS ORDERED: fentaNYL Citrate Inj 100 MCG/2 ML Ampul IV.PUSH ONE (15:15)
[2018-01-26 04:44] VITALS: RESP 18
--- NOTE | 2018-01-26 08:19 | P.PNCA ---
Subjective Interval history: Doing well overnight. Denies any chest pain, shortness of breath, palpitations. Denies any issues with right groin access site. Medications and Allergies Active Medications: Active Medications Alprazolam (Xanax) 0.5 mg PO TID PRN PRN Reason: ANXIETY Last Admin: 01/24/18 22:32 Dose: 0.5 mg Amlodipine Besylate (Norvasc) 10 mg PO BID [facility] Last Admin: 01/25/18 20:31 Dose: 10 mg Aspirin (Aspirin Chew) 81 mg PO DAILY [facility] Last Admin: 01/25/18 08:55 Dose: 81 mg Atorvastatin Calcium (Lipitor) 40 mg PO HS [facility] Last Admin: 01/25/18 20:35 Dose: Not Given Atropine Sulfate (Atropine Inj) 0.5 mg IV.PUSH UNSCH PRN PRN Reason: VAGAL REPONSE Hydrocortisone Sodium Succinate (Solucortef Inj) 100 mg IV.PUSH NOW [facility] Last Admin: 01/25/18 08:56 Dose: 100 mg Metoclopramide HCl (Reglan Inj) 10 mg IV.PUSH Q4H PRN; Protocol PRN Reason: NAUSEA Metoprolol Tartrate (Lopressor) 25 mg PO BID [facility] Last Admin: 01/25/18 20:32 Dose: 25 mg Oxycodone/Acetaminophen (Percocet 5/325 Mg) 1 tab PO Q4H PRN PRN Reason: PAIN SCALE 1 TO 4 Oxycodone/Acetaminophen (Percocet 5/325 Mg) 2 tab PO Q4H PRN PRN Reason: PAIN SCALE 5 TO 10 Sodium Chloride (Ns Flush) 2 ml IV.FLUSH BID [facility] Last Admin: 01/25/18 20:36 Dose: 2 ml Sodium Chloride (Ns Flush) 2 ml IV.FLUSH PRN PRN PRN Reason: FLUSH AFTER USING IV ACCESS Tacrolimus (Prograf) 1 mg PO Q12HR [facility] Last Admin: 01/25/18 20:34 Dose: 1 mg Ticagrelor (Brilinta) 90 mg PO BID [facility] Last Admin: 01/25/18 20:31 Dose: 90 mg Vitamin D (Vitamin D3) 400 unit PO DAILY [facility] Last Admin: 01/25/18 18:40 Dose: Not Given Allergies Allergy/AdvReac Type Severity Reaction Status Date / Time iodine Allergy Anaphylaxis Verified 01/24/18 21:45 Physical Exam Vital signs: Vital Signs 10/31/18 08:22 01/25/18 11:40 01/25/18 20:10 Temperature 98.3 F Pulse Rate 99 H 87 90 Respiratory Rate 16 16 Blood Pressure 133/80 125/78 Pulse Oximetry 100 94 L 01/25/18 20:16 01/26/18 00:00 01/26/18 00:43 Temperature 98.9 F 98.1 F Pulse Rate 89 75 77 Respiratory Rate 18 16 Blood Pressure 118/77 102/63 Pulse Oximetry 98 95 01/26/18 04:12 01/26/18 04:36 Temperature 98.5 F Pulse Rate 78 88 Respiratory Rate 18 Blood Pressure 118/74 Pulse Oximetry 99 Intake & Output 01/25/18 01/26/18 01/26/18 18:59 06:59 18:59 Intake Total 250 / 250 Output Total 800 / 800 251 / 251 Balance -550 / -550 -251 / -251 Weight 114 lb 3.191 oz 113 lb 12.136 oz Intake: Oral 250 / 250 Output: Urine 800 / 800 251 / 251 Other: Date of Last Bowel Movement 01/26/18 # Bowel Movements 1 Weight On Admission 114 lb 3.191 oz Narrative: GENERAL: Well-developed well-nourished. In no acute distress. NECK: No carotid bruits. No JVD. CARDIOVASCULAR: Regular rate and rhythm. No murmur appreciated. RESPIRATORY: No accessory muscle use. Clear to auscultation. Breath sounds equal bilaterally. MUSCULOSKELETAL: No clubbing or cyanosis. No edema. Right groin access site with some mild ecchymosis and tenderness, but no swelling and intact femoral pulse. NEUROLOGICAL: Awake and alert. Normal speech. Results 01/25/18 05:06 01/25/18 05:06 Cardiac Enzymes 01/25/18 Range/Units 05:06 AST 44 H (15-37) U/L Coagulation 01/25/18 Range/Units 05:06 PT 10.7 (9.8-11.6) sec CBC 01/25/18 Range/Units 05:06 WBC 8.1 (4.0-11.0) th/mm3 RBC 3.78 L (4.00-5.30) mil/mm3 Hgb 11.7 (11.6-15.3) gm/dL Hct 34.6 L (35.0-46.0) % Plt Count 236 (150-450) th/mm3 Neut # (Auto) 7.3 (1.8-7.7) th/mm3 Lymph # (Auto) 0.4 L (1.0-4.8) th/mm3 Bee # (Auto) 0.4 (0.0-0.9) th/mm3 Eos # (Auto) 0.0 (0.0-0.4) th/mm3 Baso # (Auto) 0.0 (0.0-0.2) th/mm3 Comprehensive Metabolic Panel 01/25/18 Range/Units 05:06 Sodium 137 (136-145) meq/L Potassium 3.3 L (3.5-5.1) meq/L Chloride 100 (98-107) meq/L Carbon Dioxide 28.1 (21.0-32.0) meq/L BUN 17 (7-18) mg/dL Creatinine 1.22 H (0.50-1.00) mg/dL Calcium 9.2 (8.5-10.1) mg/dL AST 44 H (15-37) U/L ALT 37 (10-53) U/L Alkaline Phosphatase 83 (45-117) U/L Total Protein 6.7 (6.4-8.2) g/dL Albumin 3.8 (3.4-5.0) g/dL Intake and Output 01/25/18 01/26/18 01/26/18 22:59 06:59 14:59 Intake Total 250 / 250 Output Total 800 / 800 251 / 251 Balance -550 / -550 -251 / -251 Intake: Oral 250 / 250 Output: Urine 800 / 800 251 / 251 Other: Date of Last Bowel Movement 01/26/18 # Bowel Movements 1 Weight 113 lb 12.136 oz Assessment and Plan - Plan 72-year-old female with a past medical history of liver transplant who presented to [facility] with severe chest pain on Tuesday. She was found to have non-STEMI. She underwent left heart catheterization 01/24/[address] Reyes, which showed severe mid (95%) and proximal (80%) calcific LAD stenoses that were unable to be successfully angioplastied with arthrectomy balloon. Dr. Alvarenga was contacted for rotational arthrectomy for complete revascularization of LAD lesions, and patient was transferred to [facility]. CAD: Patient underwent [facility] 01/25/18 with arthrectomy, balloon angioplasty, and stenting of LAD lesions. Continue aspirin, Brilinta, statin, metoprolol. Discharge planning. Discussed Condition With: Patient, Dr. Alvarenga
[2018-01-26 08:28] LABS: Baso % (Auto) 0.1 % (0.0-2.0); Eos % (Auto) 0.1 % (0.0-4.0); Hematocrit 35.5 % (35.0-46.0); Hemoglobin 12.3 gm/dL (11.6-15.3); Lymph # (Auto) 0.9 th/mm3 (1.0-4.8); Lymph % (Auto) 6.5 % (9.0-44.0); Mean Corpuscular HGB Conc 34.7 % (32.0-36.0); Mean Corpuscular Hemoglobin 31.4 pg (27.0-34.0); Mean Corpuscular Volume 90.6 fL (80.0-100.0); Mean Platelet Volume 9.2 fL (7.0-11.0); Mono % (Auto) 7.6 % (0.0-8.0); Neut # (Auto) 11.3 th/mm3 (1.8-7.7); Neut % (Auto) 85.7 % (16.0-70.0); Platelet Count 255 th/mm3 (150-450); Red Blood Count 3.91 mil/mm3 (4.00-5.30); Red Cell Distribution Width 13.6 % (11.6-17.2); White Blood Count 13.2 th/mm3 (4.0-11.0)
--- NOTE | 2018-01-26 08:36 | ECHRPT ---
Indication: CHEST PAIN CONCLUSIONS Normal left ventricular size. Wall thickness is normal. The left ventricular systolic function is normal with an estimated ejection fraction in the range of 55-60%. Mild thickening of the mitral valve leaflets. Mild mitral valve regurgitation. Mild thickening of the aortic valve leaflets. Mild aortic valve regurgitation. There is mild tricuspid valve regurgitation. The estimated pulmonary arterial pressure is 31 mmHg. BP: / HR: Rhythm: MEASUREMENTS (Male / Female) Normal Values Technical Quality: 2D ECHO LV Diastolic Diameter PLAX 5.5 cm 4.2 - 5.9 / 3.9 - 5.3 cm LV Systolic Diameter PLAX 4.4 cm IVS Diastolic Thickness 0.8 cm 0.6 - 1.0 / 0.6 - 0.9 cm LVPW Diastolic Thickness 0.8 cm 0.6 - 1.0 / 0.6 - 0.9 cm LV Relative Wall Thickness 0.3 RV Internal Dim ED PLAX 2.0 cm LVOT Diameter 1.9 cm Aortic Root Diameter 2.7 cm LA Systolic Diameter LX 3.2 cm 3.0 - 4.0 / 2.7 - 3.8 cm M-MODE Aortic Root Diameter MM 3.0 cm LA Systolic Diameter MM 3.9 cm LA Ao Ratio MM 1.3 AV Cusp Separation MM 2.2 cm DOPPLER AV Peak Velocity 124.0 cm/s AV Peak Gradient 6.2 mmHg AI Peak Velocity 249.0 cm/s AI Peak Gradient 24.8 mmHg AI Pressure Half Time 298.0 ms LVOT Peak Velocity 103.0 cm/s LVOT Peak Gradient 4.2 mmHg AV Area Cont Eq pk 2.4 cm Mitral E Point Velocity 67.6 cm/s Mitral A Point Velocity 96.3 cm/s Mitral E to A Ratio 0.7 LV E' Lateral Velocity 3.7 cm/s Mitral E to LV E' Lateral Ratio 18.3 LV E' Septal Velocity 4.2 cm/s Mitral E to LV E' Septal Ratio 16.1 TR Peak Velocity 229.0 cm/s TR Peak Gradient 21.0 mmHg Right Atrial Pressure 10.0 mmHg Pulmonary Artery Systolic Pressu 31.0 mmHg Right Ventricular Systolic Press 31.0 mmHg PV Peak Velocity 82.8 cm/s PV Peak Gradient 2.7 mmHg FINDINGS LEFT VENTRICLE Normal left ventricular size. Wall thickness is normal. The left ventricular systolic function is normal with an estimated ejection fraction in the range of 55-60%. RIGHT VENTRICLE Normal right ventricular size and systolic function. LEFT ATRIUM The left atrial size is normal. RIGHT ATRIUM The right atrial size is normal. ATRIAL SEPTUM Normal atrial septal thickness without atrial level shunting by limited color doppler interrogation. AORTA The aortic root and proximal ascending aorta are normal in size on limited imaging. MITRAL VALVE Mild thickening of the mitral valve leaflets. Mild mitral valve regurgitation. AORTIC VALVE Mild thickening of the aortic valve leaflets. Mild aortic valve regurgitation. TRICUSPID VALVE There is mild tricuspid valve regurgitation. The estimated pulmonary arterial pressure is 31 mmHg. PULMONARY VALVE No pulmonary valve regurgitation or stenosis. VESSELS The inferior vena cava is normal in size. PERICARDIUM No pericardial effusion. Edis Alvarenga MD, FACC (Electronically Signed) Final Date:26 January 2018 08:35
[2018-01-26 08:52] VITALS: BP 113/72; PULSE 94; TEMP 98; O2SAT 97
--- NOTE | 2018-01-26 08:57 | P.PNIM ---
Subjective Interval history: no cp. wants to go home. Physical Exam Vital signs: Last Vital Signs Temp 98 F 01/26/18 08:36 Pulse 94 H 01/26/18 08:36 Resp 18 01/26/18 08:36 BP 113/72 01/26/18 08:36 Pulse Ox 97 01/26/18 08:36 Narrative: heart reg lung cta abd s/nt ext no edema Results Labs CBC & Chem 7: 01/26/18 08:03 01/25/18 05:06 Assessment and Plan Plan Pt s/p LHC and stenting of prox and mid lad after rotational atherectomy and balloon. dc home f/u cardiology cont bb/asa/brillinta/statin discussed with Dr Alvarenga. Progress Note: Quality VTE Deep Vein Thrombosis/Pulmonary Embolism Present on Admission: No
[2018-01-26 09:00] LABS: Calcium 9.6 mg/dL (8.5-10.1); Carbon Dioxide 29.3 meq/L (21.0-32.0)
[2018-01-26] MEDS: amLODIPine 10 MG Tablet PO SCH (09:47)
[2018-01-26] MEDS: Metoprolol Tartrate 25 MG Tablet PO SCH (09:51)
[2018-01-26] MEDS ORDERED: Potassium Bicarbonate 25 MEQ Effervescent Tablet PO ONE (11:00)
== END 2018-01-26 11:09 | disposition home or self-care (01) ==
LOC: HCIN 19:30
PROVIDERS: ADMIT Hospitalist; ATTEND Hospitalist